=== PATIENT | female | born 1950 | race Caucasian/White ===

== ENCOUNTER → 2017-10-04 | Day surgery (SDC) | payer BC, OTHER ==
[~2017-10-04] VITALS: Ht 160 cm; Wt 99.1 kg
[~2017-10-04] MED LIST: *morphine SULFATE 8 MG/ML PERIprocedure ONLY ONE; ASPI81TA23 PO; BACITRACIN TOP OINT 15 GM TUBE ONE; BUPIVACAINE HCL PF 0.5% 30 ML VIAL ONE; CHLORHEXIDINE GLUCONATE 2 % 1 PACK (2 CLOTHS) TOPICAL PRN; DEXAMETHASONE SOD PHOS 4 MG/ML VIAL IV ONE; DO NOT ADM ANY ANTICOAGULANT DRUGS PRN; EPINEPHrine HCL (1:1000) 1 MG/ML VIAL IV ONE; EPINEPHrine HCL (1:1000) 1 MG/ML VIAL ONE; LACTATED RINGER'S 1000 ML INJ 500 ML IV ONE; LACTATED RINGER'S 1000 ML IV PRN; LIDOCAINE HCL 1% PF 5 ML SYRINGE OTHER ONE; LIDOCAINE HCL 2% 50 ML VIAL ONE; LOSA50TA PO; METOPROLOL TARTRATE 25 MG TAB PO PRN; MULT-207 PO; NEOMYCIN/POLYMYXIN 1 ML G.U. IRRIGANT ONE; ONDANSETRON HCL 4 MG/2 ML VIAL IV PUSH ONE; PHENYLEPH/NS 1000 MCG/10 ML SYR IV ONE; POVIDONE IODINE 5% (ANTISEPSIS KIT) 4 APPLICATIONS EACH NARE PRN; PROPOFOL 200 MG/20 ML AMP IV ONE; SODIUM CHLORID 0.9% 500 ML IV PRN; ceFAZolin 2 GM PREMIX 50 ML IV SCH
--- NOTE | 2017-10-04 14:45 | PD.OP ---
Operative Report Preoperative Diagnosis: (1) squamous cell carcinoma left thumb nailfold/bed Postoperative Diagnosis: (1) squamous cell carcinoma left thumb nailfold/bed Procedure: wide excision squamous cell carcinoma left thumb nailfold/bed Anesthesia: general Surgeon: Naren Joaquin Fire Management Officer(s): mai Operation and Findings: radial nail fold/bed wide excision: frozen section negative Naren Joaquin MD Oct 04, 2017 14:45
[2017-10-04 16:00] VITALS: TEMP 97.6
[2017-10-04 16:51] VITALS: BP 149/76; PULSE 78; RESP 16; O2SAT 98
--- NOTE | 2017-10-04 17:17 | MP ---
cc: NAREN CARBAJAL MD DATE OF SURGERY 10/04/2017 PREOPERATIVE DIAGNOSIS Squamous cell carcinoma left thumb nail fold / bed. POSTOPERATIVE DIAGNOSIS Squamous cell carcinoma left thumb nail fold / bed. PROCEDURE Wide excision squamous cell carcinoma left thumb nail fold / bed. SURGEON Dr. Carbajal. ANESTHESIA General. ESTIMATED BLOOD LOSS Minimal TOURNIQUET TIME 11 minutes at 250 mmHg. SPECIMEN Was sent for frozen section which was negative for carcinoma. The patient was recovered and sent to recovery in stable condition. INDICATION The patient is a 67-year-old female who underwent excision and ablation of the radial nail bed of the left thumb. About 4 weeks ago was found to have squamous cell carcinoma on pathology with involvement of lateral and deep margins. She was consented for wide excision, possible skin grafting. She had no proximal lymph nodes palpable. On examination she had no obvious lesion along the radial nail fold of the thumb. X-rays were negative for bony lesion. The patient was explained the risks and benefits of the procedure. DETAILS OF PROCEDURE The patient was brought to the operating room. Under general anesthesia the left upper extremity was thoroughly prepped and draped. Incision site was marked around the radial nail fold corresponding to the previous lesion in an elliptical fashion. After limb elevation, tourniquet inflated to 250 mmhg. Nail plate was removed. The incision was then marked on the nail bed in an elliptical fashion incorporating the previous site of the lesion. Using sharp dissection the specimen was removed measured about 1cm x 6 mm. The specimen was marked as two short strands as proximal and one long strand as radial. The specimen was sent for frozen section. Proximally the previously placed incision over the lateral nail fold was excised in an elliptical fashion. Thorough wash was given. Tourniquet was deflated. Total tourniquet time was 11 minutes. Bleeding points were cauterized with bipolar cautery and epinephrine solution. The frozen section was negative for squamous cell carcinoma. Hence decision was made to proceed with primary closure. The nail fold elliptical incision was closed with a single stitch of 5-0 chromic catgut stitch and the nail fold on the radial aspect was approximated to the nail bed using 5-0 chromic catgut stitches. The nail plate was cleared of the soft tissue and was soaked in Betadine solution and was inserted at the neck of the skin fold. Xeroform, bacitracin dressing applied. About 3 cc of local anesthesia containing mixture of 2% lidocaine, 0.5 % Marcaine was injected as a digital block. Bulky hand dressing was applied which was held in place by Lisbet. The patient was recovered and sent to recovery in stable condition. The patient will follow up in [id number] days for dressing change. Naren Carbajal MD SE/[facility]IA /2:46 PM /4:56 PM [facility]
== END | disposition home or self-care (01) ==
LOC: HSDC 09:12
PROVIDERS: ATTEND Surgery Surgery of the Hand
DX: C44.629 Squamous cell carcinoma of skin of left upper limb, including shoulder (principal); I10 Essential (primary) hypertension
CPT/HCPCS: 00400; 11621; 88305; 88311; 88331; J0171; J0690; J1100; J2270; J2370; J2405; J3010; J7120